=== PATIENT | female | born 1975 | race Hispanic/Latino ===

== ENCOUNTER 2020-05-08 14:32 | Outpatient (CLI) | payer OTHER ==
--- NOTE | 2020-05-08 15:05 | RAD ---
4 views of the left knee: 05/08/2020 COMPARISON: None HISTORY: Pain, no history of injury FINDINGS: No fracture or dislocation. No radiopaque foreign body or subcutaneous gas. No knee joint e ffusion noted. IMPRESSION: No acute findings.
== END 2020-05-08 14:33 | disposition home or self-care (01) ==
LOC: BICRAD 14:32
PROVIDERS: ATTEND Family Medicine
DX: M25.562 Pain in left knee (principal)